=== PATIENT | female | born 1965 | race Caucasian/White ===

== ENCOUNTER 2017-10-20 08:58 | Observation (INO) | payer BC ==
[2017-10-20] MEDS ORDERED: ASPIRIN 81 MG TABLET, CHEWABLE PO ONE (09:31)
[2017-10-20 09:46] LABS: ABSOLUTE BASOPHILS # (AUTO) 0.1 10^3/uL (0.0-0.2); ABSOLUTE EOSINOPHILS # (AUTO) 0.4 10^3/uL (0.0-0.6); ABSOLUTE LYMPHOCYTES (AUTO) 1.5 10^3/uL (0.5-4.7); ABSOLUTE MONOCYTES (AUTO) 0.7 10^3/uL (0.1-1.4); ABSOLUTE NEUT (AUTO) 2.7 10^3/uL (1.7-8.2); BASOPHILS % (AUTO) 1.1 % (0-2); EOSINOPHILS % (AUTO) 7.6 % (0-6); HEMATOCRIT 39.3 % (36.0-47.0); HEMOGLOBIN 13.4 g/dL (12.0-15.5); LYMPHOCYTES % (AUTO) 28.1 % (13-45); MEAN CORPUSCULAR HGB CONC 34.1 g/dL (32.0-36.0); MEAN CORPUSCULAR VOLUME 88 fl (80-97); MONOCYTES % (AUTO) 12.6 % (3-13); PLATELET COUNT 217 10^3/uL (150-450); RED BLOOD COUNT 4.48 10^6/uL (3.72-5.28); RED CELL DISTRIBUTION WIDTH 13.4 % (11.5-14.0); SEGMENTED NEUTROPHILS % (AUTO) 50.6 % (42-78); TOTAL CELLS COUNTED % (AUTO) 100 %; WHITE BLOOD COUNT 5.3 10^3/uL (4.0-10.5)
[2017-10-20 09:52] LABS: ALANINE AMINOTRANSFERASE 31 U/L (9-52); ALKALINE PHOSPHATASE 78 U/L (38-126); ANION GAP 12 (5-19); ASPARTATE AMINO TRANSFERASE 30 U/L (14-36); BILIRUBIN,DIRECT 0.2 mg/dL (0.0-0.4); BILIRUBIN,TOTAL 0.3 mg/dL (0.2-1.3); BLOOD UREA NITROGEN 14 mg/dL (7-20); CALCIUM 9.3 mg/dL (8.4-10.2); CARBON DIOXIDE 29 mmol/L (22-30); CHLORIDE 106 mmol/L (98-107); CREATINE KINASE 67 U/L (30-135); GLUCOSE 102 mg/dL (75-110); POTASSIUM 3.7 mmol/L (3.6-5.0); SODIUM 147.3 mmol/L (137-145); TOTAL PROTEIN 6.4 g/dL (6.3-8.2)
[2017-10-20 10:04] LABS: TROPONIN I < 0.012 ng/mL
--- NOTE | 2017-10-20 10:06 | RADIOLOGY REPORT (SQ) ---
EXAM DESCRIPTION: CHEST SINGLE VIEW COMPLETED DATE/TIME: 10/20/2017 9:45 am REASON FOR STUDY: chest pain COMPARISON: None. EXAM PARAMETERS: NUMBER OF VIEWS: One view. TECHNIQUE: Single frontal radiographic view of the chest acquired. RADIATION DOSE: NA LIMITATIONS: None. FINDINGS: LUNGS AND PLEURA: No opacities, masses or pneumothorax. No pleural effusion. MEDIASTINUM AND HILAR STRUCTURES: No masses. Contour normal. HEART AND VASCULAR STRUCTURES: Heart normal in size. Normal vasculature. BONES: No acute findings. HARDWARE: None in the chest. OTHER: No other significant finding. IMPRESSION: NO ACUTE RADIOGRAPHIC FINDING IN THE CHEST. TECHNICAL DOCUMENTATION: JOB ID: [id number] [employer]- All Rights Reserved Reading location - IP/workstation name: [email or web address]
--- NOTE | 2017-10-20 10:12 | ER Document Report ---
ED General - General Chief Complaint: Chest Pain Stated Complaint: CHEST PAIN Time Seen by Provider: 10/20/17 09:13 Mode of Arrival: Ambulatory Information source: Patient Notes: 52-year-old female history of [place] in 2012 1 stents hypertension hyperlipidemia presents with complaints of chest pressure sensation. Patient notes the sensation initially started last week mild pressure, this morning the pressure returned. No associated shortness of breath noted the pain radiated to her back and to her left elbow. Patient denies any previous similar episodes, notes she had a normal heart cath 2 years ago in [place] Patient is not on any blood thinners that take baby aspirin daily, she is noncompliant with her statin due to body aches TRAVEL OUTSIDE OF THE [place] IN LAST 30 DAYS: No - HPI Onset: This morning Onset/Duration: Sudden Quality of pain: Pressure Severity: Mild Pain Level: 1 Associated symptoms: Chest pain Exacerbated by: Denies Relieved by: Denies Similar symptoms previously: Yes Recently seen / treated by doctor: No - Related Data Allergies/Adverse Reactions: codeine Allergy (Verified 10/20/17 08:59) Past Medical History - Social History Smoking Status: Current Every Day Smoker Cigarette use (# per day): Yes Chew tobacco use (# tins/day): No Smoking Education Provided: No Frequency of alcohol use: Occasional Family History: CAD Patient has suicidal ideation: No Patient has homicidal ideation: No Renal/ Medical History: Denies: Hx Peritoneal Dialysis Past Surgical History: Reports: Hx Cardiac Catheterization, Hx Cardiac Surgery - stent Review of Systems - Review of Systems Notes: REVIEW OF SYSTEMS: CONSTITUTIONAL : Denies fever, chills, or sweats. Denies recent illness. EENT: Denies eye, ear, throat, or mouth pain or symptoms. Denies nasal or sinus congestion or discharge. Denies throat, tongue, or mouth swelling or difficulty swallowing. CARDIOVASCULAR: Admits to chest pain RESPIRATORY: Denies cough, cold, or chest congestion. Denies shortness of breath, difficulty breathing, or wheezing. GASTROINTESTINAL: Denies abdominal pain or distention. Denies nausea, vomiting , or diarrhea. Denies blood in vomitus, stools, or per rectum. Denies black, tarry stools. Denies constipation. GENITOURINARY: Denies difficulty urinating, painful urination, burning, frequency, blood in urine, or discharge. FEMALE GENITOURINARY: Denies vaginal bleeding, heavy or abnormal periods, irregular periods. Denies vaginal discharge or odor. MUSCULOSKELETAL: Denies back or neck pain or stiffness. Denies joint pain or swelling. SKIN: Denies rash, lesions or sores. HEMATOLOGIC : Denies easy bruising or bleeding. LYMPHATIC: Denies swollen, enlarged glands. NEUROLOGICAL: Denies confusion or altered mental status. Denies passing out or loss of consciousness. Denies dizziness or lightheadedness. Denies headache. Denies weakness or paralysis or loss of use of either side. Denies problems with gait or speech. Denies sensory loss, numbness, or tingling. Denies seizures. PSYCHIATRIC: Denies anxiety or stress. Denies depression, suicidal ideation, or homicidal ideation. ALL OTHER SYSTEMS REVIEWED AND NEGATIVE. PHYSICAL EXAMINATION: GENERAL: Well-appearing, well-nourished and in no acute distress. HEAD: Atraumatic, normocephalic. EYES: Pupils equal round and reactive to light, extraocular movements intact, conjunctiva are normal. ENT: Nares patent, oropharynx clear without exudates. Moist mucous membranes. NECK: Normal range of motion, supple without lymphadenopathy LUNGS: Breath sounds clear to auscultation bilaterally and equal. No wheezes rales or rhonchi. HEART: Regular rate and rhythm without murmurs ABDOMEN: Soft, nontender, nondistended abdomen. No guarding, no rebound. No masses appreciated. Female : deferred Musculoskeletal: Normal range of motion, no pitting or edema. No cyanosis. NEUROLOGICAL: Cranial nerves grossly intact. Normal speech, normal gait. Normal sensory, motor exams PSYCH: Normal mood, normal affect. SKIN: Warm, Dry, normal turgor, no rashes or lesions noted. Dictation was performed using [employer] voice recognition software Physical Exam - Vital signs Vitals: BP Pulse Ox 159/82 H 99 10/20/17 09:13 10/20/17 09:13 Course - Re-evaluation Re-evalutation: 10/20/17 10:15 First set of cardiac enzymes EKG no no significant abnormality, there was initial concern that there might be ST elevations in aVR, I did discuss with this with Dr. Haas who notes it looks normal at this time, I agree, overall patient looks well is in no distress has no pain at this time she is noted to be slightly bradycardic but is on metoprolol Patient will be observed in the hospital - Vital Signs Vital signs: Temp Pulse Resp BP Pulse Ox 13 159/82 H 100 10/20/17 09:14 10/20/17 09:13 10/20/17 09:14 - Laboratory Result Diagrams: 10/20/17 09:15 10/20/17 09:15 Laboratory results interpreted by me: 10/20/17 10/20/17 09:15 09:15 Eosinophils % 7.6 H Sodium 147.3 H - Diagnostic Test Radiology reviewed: Image reviewed - 2 view chest x-ray notes no acute abnormality, Reports reviewed - EKG Interpretation by Me EKG shows normal: Sinus rhythm, Backus, Intervals, QRS Complexes When compared to previous EKG there are: Previous EKG unavailable Discharge - Discharge Clinical Impression: Chest pain Qualifiers: Chest pain type: unspecified Qualified Code(s): R07.9 - Chest pain, unspecified Condition: Stable Disposition: ADMITTED OBSERVATION Admitting Provider: Hospitalist Unit Admitted: Telemetry
[2017-10-20] MEDS ORDERED: NITROGLYCERIN 0.4 MG/TAB 25 TAB/BOTTLE ONE (12:06)
[2017-10-20] MEDS ORDERED: DEXTROSE 40% GEL 15 GM TUBE PO PRN ×2 (12:16)
[2017-10-20] MEDS ORDERED: DEXTROSE 50%-WATER 25 GM/50 ML DISP.SYRIN IV PRN ×2 (12:16)
[2017-10-20] MEDS ORDERED: ACETAMINOPHEN 325 MG TABLET PO PRN (12:16)
[2017-10-20] MEDS ORDERED: GLUCAGON,HUMAN RECOMB 1 MG INJ SUBCUT PRN (12:16)
[2017-10-20] MEDS ORDERED: NITROGLYCERIN 2% OINTMENT 1 GM PACKET ONE (12:25)
[2017-10-20] MEDS ORDERED: HYDRALAZINE HCL INJ/PF 20 MG/1 ML SDV IV PRN (12:48)
[2017-10-20] MEDS: ONDANSETRON 4 MG TAB.RAPDIS PO PRN ×2 (12:50→19:08)
--- NOTE | 2017-10-20 12:50 | PDOC H&P ---
History of Present Illness Admission Date/PCP: 10/20/17 10:24 Dr Noreen Morrison in [facility] History of Present Illness: CHRISTAL FELICIANO is a 52 year old female who is visiting the [facility] from [place]. Her past medical history is significant for coronary artery disease status post stent placement. She also has a history of hyperlipidemia and hypertension. Unfortunately she continues to smoke. The patient presented to the emergency room with worsening chest discomfort. She states it started before she left [place] but went away and she decided to come to this area anyway. Yesterday evening she had some chest discomfort that radiated into the jaw left shoulder and left elbow. It did go away but worsened this morning and she presented to the emergency room for further evaluation and treatment. The patient is a rather poor historian and is very vague in describing her symptoms however she does tell me that this chest discomfort is almost identical to the chest pain she had with her MN. She states that there is nothing that makes it better or worse. It is associated with diaphoresis and mild nausea. She does have radiation into the jaw left shoulder and left elbow. She states she has not been totally compliant with her statin medication because it causes muscle aches. Otherwise she takes her other medications as prescribed. She states she does follow with a call out operator in [place] however she cannot recall his name. Before I could get to see the patient this morning she developed an episode of severe chest pain. The nurse called me and I ordered sublingual nitroglycerin. By the time I got to the patient's room her chest pain was relieved. We placed some nitro paste on the patient with total resolution of her chest pain. Past Medical History Cardiac Medical History: Reports: Coronary Artery Disease, Other - MN status post stent placement Pulmonary Medical History: Reports: None Denies: Chronic Obstructive Pulmonary Disease (COPD), Pneumonia, Respiratory Failure EENT Medical History: Reports: None Neurological Medical History: Denies: Hemorrhagic CVA, Ischemic CVA, Migraine, Seizures Endocrine Medical History: Denies: Diabetes Mellitus Type 1, Diabetes Mellitus Type 2 Renal/ Medical History: Denies: Chronic Kidney Disease, End Stage Renal Disease Malignancy Medical History: Reports: None GI Medical History: Denies: Gastroesophageal Reflux Disease Musculoskeltal Medical History: Reports: None Skin Medical History: Reports: None Psychiatric Medical History: Reports: None Past Surgical History Past Surgical History: Reports: Cardiac Catheterization Social History Information Source: Patient Lives with: Alone Smoking Status: Current Every Day Smoker - The patient quit smoking when she had her heart attack. However she continues to elevate with a low nicotine solution. Frequency of Alcohol Use: Rare Hx Recreational Drug Use: No Hx Prescription Drug Abuse: No - Advance Directive Resuscitation Status: Full Code Family History Family History: CAD Parental Family History Reviewed: Yes Children Family History Reviewed: Yes Sibling(s) Family History Reviewed.: Yes Medication/Allergy Home Medications: Aspirin 81 mg PO DAILY 10/20/17 Atorvastatin Calcium 10 mg PO QHS 10/20/17 Hydrochlorothiazide [Hydrochlorothiazide] 12.5 mg PO QAM 10/20/17 Lisinopril [Lisinopril] 20 mg PO DAILY 10/20/17 Metoprolol Tartrate [Metoprolol Tartrate] 25 mg PO BID 10/20/17 Allergies/Adverse Reactions: codeine Allergy (Verified 10/20/17 08:59) Review of Systems Constitutional: PRESENT: fatigue, weight gain. ABSENT: chills, fever(s), weakness Eyes: ABSENT: visual disturbances Ears: ABSENT: hearing changes Cardiovascular: PRESENT: chest pain - The patient has chest pain. It does not worsen or get better with exercise or rest. Radiates into her left shoulder and elbow as well as her jaw. Respiratory: ABSENT: cough, hemoptysis Gastrointestinal: ABSENT: abdominal pain, constipation, diarrhea, hematemesis, hematochezia, nausea, vomiting Genitourinary: ABSENT: dysuria, hematuria Musculoskeletal: ABSENT: joint swelling Integumentary: ABSENT: rash, wounds Neurological: ABSENT: abnormal gait, abnormal speech, confusion, dizziness, focal weakness, syncope Psychiatric: PRESENT: anxiety. ABSENT: depression, homidical ideation, suicidal ideation Endocrine: ABSENT: cold intolerance, heat intolerance, polydipsia, polyuria Hematologic/Lymphatic: ABSENT: easy bleeding, easy bruising Physical Exam Vital Signs: Temp Pulse Resp BP Pulse Ox 97.9 F 47 L 16 140/84 H 100 10/20/17 11:28 10/20/17 11:28 10/20/17 11:28 10/20/17 11:28 10/20/17 11:28 Intake & Output 10/19/17 10/20/17 10/21/17 06:59 06:59 06:59 Weight 91.9 kg General appearance: PRESENT: mild distress, well-developed, well-nourished, other - Initially at the time of my visit she was still having some chest discomfort. This totally was resolved with Nitropaste Head exam: PRESENT: atraumatic, normocephalic Eye exam: PRESENT: conjunctiva pink, EOMI, PERRLA. ABSENT: scleral icterus Ear exam: PRESENT: normal external ear exam Mouth exam: PRESENT: moist, tongue midline Neck exam: ABSENT: carotid bruit, JVD, lymphadenopathy, thyromegaly Respiratory exam: PRESENT: clear to auscultation alessandra. ABSENT: rales, rhonchi, wheezes Cardiovascular exam: PRESENT: RRR. ABSENT: diastolic murmur, rubs, systolic murmur Pulses: PRESENT: normal dorsalis pedis pul Vascular exam: PRESENT: normal capillary refill GI/Abdominal exam: PRESENT: normal bowel sounds, soft. ABSENT: distended, guarding, mass, organolmegaly, rebound, tenderness Rectal exam: PRESENT: deferred Extremities exam: PRESENT: full ROM. ABSENT: calf tenderness, clubbing, pedal edema Musculoskeletal exam: PRESENT: ambulatory Neurological exam: PRESENT: alert, awake, oriented to person, oriented to place , oriented to time, oriented to situation, CN II-XII grossly intact. ABSENT: motor sensory deficit Psychiatric exam: PRESENT: anxious Skin exam: PRESENT: dry, intact, warm. ABSENT: cyanosis, rash Results Impressions: Chest X-Ray 10/20/17 09:31 IMPRESSION: NO ACUTE RADIOGRAPHIC FINDING IN THE CHEST. Assessment & Plan - Diagnosis (1) Chest pain Is this a current diagnosis for this admission?: Yes Plan: Concerns for acute coronary syndrome. The patient states that her chest discomfort is identical to her previous myocardial infarction. Her chest discomfort was totally resolved with nitro paste. We will place her in observation in the hospital. I will trend her serial troponins. If they remain negative she will have a stress test performed in the morning. Also will order a 2D echocardiogram. I will consult cardiology just to be on the safe side as her symptoms are quite concerning. For now I will place the patient on full dose Lovenox as well as a full dose aspirin. (2) Coronary artery disease Is this a current diagnosis for this admission?: Yes Plan: Plan as above. She will continue a full dose aspirin. She will continue her metoprolol and BAILEY inhibitor. I will start her back on her statin medication for now. (3) Hyperlipidemia Is this a current diagnosis for this admission?: Yes Plan: For now she will continue her statin medication. I will add a lipid panel onto tomorrow's labs. (4) Hypertension Is this a current diagnosis for this admission?: Yes Plan: She will have IV hydralazine available as needed. (5) Obesity Is this a current diagnosis for this admission?: Yes Plan: She states she has gained a significant amount of weight recently. She states she has been under increased stress (6) Hypernatremia Is this a current diagnosis for this admission?: Yes Plan: This is quite mild. She will have a chemistry panel drawn in the morning. (7) Nicotine dependence Is this a current diagnosis for this admission?: Yes Plan: The patient Vapes a low nicotine solution. (8) Anxiety Is this a current diagnosis for this admission?: Yes Plan: The patient admits to being under a tremendous amount of stress. Her daughter recently got and her mother has declined and she has had to place her in an assisted living facility. Her father last year of colon cancer. (9) Full code status Is this a current diagnosis for this admission?: Yes - Time Time Spent: 50 to 70 Minutes - Inpatient Certification Medical Necessity: Other - The patient will be placed in observation in the hospital. We will rule her out for acute coronary syndrome. If her workup is negative she will be discharged tomorrow. I expect her hospitalization will last less than 2 midnights at this point. Certainly if she rules and her status can be changed.
[2017-10-20] MEDS ORDERED: LISINOPRIL 10 MG TABLET PO ONE (13:30)
[2017-10-20] MEDS ORDERED: HYDROCHLOROTHIAZIDE 12.5 MG CAPSULE PO ONE (13:30)
[2017-10-20] MEDS ORDERED: ENOXAPARIN SODIUM INJ 100 MG/1 ML DISP.SYRIN SUBCUT ONE (13:30)
[2017-10-20 13:33] LABS: APPEARANCE,URINE CLEAR; BILIRUBIN,URINE NEGATIVE (NEGATIVE); COLOR,URINE STRAW; GLUCOSE, URINE NEGATIVE (NEGATIVE); KETONES,URINE NEGATIVE (NEGATIVE); LEUKOCYTE ESTERASE,URINE NEGATIVE (NEGATIVE); NITRITE,URINE NEGATIVE (NEGATIVE); PROTEIN,URINE NEGATIVE (NEGATIVE); URINE SPECIFIC GRAVITY 1.008; UROBILINOGEN,URINE NEGATIVE mg/dL (<2.0)
[2017-10-20] MEDS ORDERED: ASPIRIN 81 MG TABLET, CHEWABLE PO SCH ×2 (14:00)
[2017-10-20] MEDS: NITROGLYCERIN 2% OINTMENT 1 GM PACKET TP SCH ×2 (14:27→21:55)
[2017-10-20 16:19] LABS: CREATINE KINASE MB 0.63 ng/mL (<4.55); TROPONIN I 0.048 ng/mL
--- NOTE | 2017-10-20 17:56 | XCELERA REPORT ---
[address] [address] Transthoracic Echocardiogram Report Name: CHRISTAL FELICIANO Age: 52 yrs Gender: Female : 1965 Patient Status: Inpatient Patient Location: [address] [place] [address] Study Date: 10/20/2017 03:20 PM Procedure: A complete two-dimensional transthoracic echocardiogram was performed (2D, M-mode, spectral and color flow Doppler). The study was technically difficult with many images being suboptimal in quality. Reason For Study: chest pain, hx TN with stent Ordering Physician: CHRISTINA WHALEY Performed By: Carie Nick Interpretation Summary The left ventricular ejection fraction is preserved. Consider additional methods to assess LVEF such as MUGA scan, CTA heart, cardiac MRI, ALEXEY, etc. if clinically indicated. The left ventricle is grossly normal size. LV diastolic function could not be adequately assessed. Regional wall motion abnormalities cannot be excluded due to limited visualization. The right ventricular systolic function is normal. The right atrium is normal in size The left atrial size is normal. There is a trace amount of mitral regurgitation There is no mitral valve stenosis. No aortic regurgitation is present. There is no aortic valve stenosis There is no tricuspid stenosis. No tricuspid regurgitation. The pulmonic valve is not well visualized. The aortic root is not well visualized but is probably normal size. The inferior vena cava appeared small and collapsed with respiration (RAP 0-5 mmHg) There is no pericardial effusion. MMode/2D Measurements & Calculations RVDd: 2.9 cm LVIDd: 5.5 cm FS: 46.0 % Ao root diam: 3.0 cm IVSd: 1.1 cm LVIDs: 3.0 cm EDV(Teich): 145.9 ml Ao root area: 7.1 cm2 LVPWd: 0.87 cm ESV(Teich): 33.8 ml EF(Teich): 76.8 % Doppler Measurements & Calculations MV E max jared: MV dec slope: Ao V2 max: LV V1 max P.4 cm/sec 246.6 cm/sec2 88.4 cm/sec 1.3 mmHg MV A max jared: MV dec time: 0.28 secAo max PG: LV V1 max: 63.5 cm/sec 3.1 mmHg 58.0 cm/sec MV E/A: 1.1 PA V2 max: TR max jared: 51.8 cm/sec 194.3 cm/sec PA max P.1 mmHgTR max P.1 mmHg Left Ventricle The left ventricle is grossly normal size. The left ventricular ejection fraction is preserved. Consider additional methods to assess LVEF such as MUGA scan, CTA heart, cardiac MRI, ALEXEY, etc. if clinically indicated. LV diastolic function could not be adequately assessed. Regional wall motion abnormalities cannot be excluded due to limited visualization. Right Ventricle The right ventricle is grossly normal size. There is normal right ventricular wall thickness. The right ventricular systolic function is normal. Atria The right atrium is normal in size. The left atrial size is normal. Interarterial septum not well visualized and not well dopplered. Cannot comment on ASD/PFO presence. Mitral Valve The mitral valve is grossly normal. There is no mitral valve stenosis. There is a trace amount of mitral regurgitation. Aortic Valve The aortic valve is grossly normal. There is no aortic valve stenosis. No aortic regurgitation is present. Tricuspid Valve The tricuspid valve is not well visualized, but is grossly normal. There is no tricuspid stenosis. No tricuspid regurgitation. Pulmonic Valve The pulmonic valve is not well visualized. Great Vessels The aortic root is not well visualized but is probably normal size. The inferior vena cava appeared small and collapsed with respiration (RAP 0-5 mmHg). Effusions There is no pericardial effusion. : CHRISTINA WHALEY > Kemal Haas
[2017-10-20] MEDS ORDERED: METOPROLOL TARTRATE 25 MG TABLET PO SCH (18:00)
--- NOTE | 2017-10-20 18:53 | PDOC TRANSFER SUMMARY ---
General Admission Date/PCP: 10/20/17 10:24 In [place] Admission Date: 10/20/17 Transfer Date: 10/20/17 Accepting Facility: [facility] Resuscitation Status: Full Code - Transfer Diagnosis (1) Chest pain Is this a current diagnosis for this admission?: Yes Diagnosis Summary: The patient has had a rise in her troponins. In light of her history it is felt that transfer to a tertiary center for consideration of cardiac catheterization is necessary. Dr. Harris from the cardiology department at [facility] is graciously agreed to accept this patient in transfer. She will be transferred as soon as a bed is found. (2) Coronary artery disease Is this a current diagnosis for this admission?: Yes Diagnosis Summary: She is on metoprolol, BAILEY inhibitor and statin medication which she takes intermittently as an outpatient. She also is on an aspirin. She is status post NM in the past with a stent in place. I do not have information further than that (3) Hyperlipidemia Is this a current diagnosis for this admission?: Yes Diagnosis Summary: She is not compliant with always taking her statin medication due to muscle pain. (4) Hypertension Is this a current diagnosis for this admission?: Yes Diagnosis Summary: Stable (5) Obesity Is this a current diagnosis for this admission?: Yes Diagnosis Summary: She states she has gained quite a bit of weight recently. (6) Hypernatremia Is this a current diagnosis for this admission?: Yes (7) Nicotine dependence Is this a current diagnosis for this admission?: Yes Diagnosis Summary: The patient vapes a low nicotine solution (8) Anxiety Is this a current diagnosis for this admission?: Yes Diagnosis Summary: She has been under increased stress recently. (9) Full code status Is this a current diagnosis for this admission?: Yes - Transfer Medications Home Medications: Aspirin 81 mg PO DAILY 10/20/17 Atorvastatin Calcium 10 mg PO QHS 10/20/17 Hydrochlorothiazide [Hydrochlorothiazide] 12.5 mg PO QAM 10/20/17 Lisinopril [Lisinopril] 20 mg PO DAILY 10/20/17 Metoprolol Tartrate [Metoprolol Tartrate] 25 mg PO BID 10/20/17 Transfer Medications: Current Medications Acetaminophen (Tylenol 325 Mg Tablet) 650 mg PO Q4HP PRN PRN Reason: MILD PAIN Stop: 11/19/17 12:15 Aspirin (Aspirin 81 Mg Chewable Tablet) 325 mg PO DAILY@1400 [facility] Stop: 11/19/17 13:59 Last Admin: 10/20/17 13:49 Dose: Not Given Atorvastatin Calcium (Lipitor 10 Mg Tablet) 10 mg PO QHS [facility] Stop: 11/19/17 21:59 Dextrose (Dextrose Inj 50% Syringe (25 Gm/50 Ml)) 12.5 gm IV PRN PRN; Protocol PRN Reason: FOR BG 50-69 IN ALERT PATIENT Stop: 11/19/17 12:15 Dextrose (Dextrose Inj 50% Syringe (25 Gm/50 Ml)) 25 gm IV PRN PRN; Protocol PRN Reason: See Label Comments Stop: 11/19/17 12:15 Enoxaparin Sodium (Lovenox Inj 100 Mg/1 Ml Disp.Syrin) 90 mg SUBCUT Q12 [facility] Stop: 11/19/17 21:59 Glucagon (Glucagen Inj 1 Mg Vial) 1 mg SUBCUT PRN PRN; Protocol PRN Reason: Evaluate for BG < 70 Stop: 11/19/17 12:15 Glucose (Glutose 40% Gel 15 Gm Tube) 15 gm PO PRN PRN; Protocol PRN Reason: For BG 50-69 in Alert Patient Stop: 11/19/17 12:15 Glucose (Glutose 40% Gel 15 Gm Tube) 30 gm PO PRN PRN; Protocol PRN Reason: FOR BG < 50 IN ALERT PATIENT Stop: 11/19/17 12:15 Hydralazine HCl (Apresoline Inj/Pf 20 Mg/1 Ml Sdv) 10 mg IV Q6HP PRN PRN Reason: GIVE FOR SBP > [] / DBP > [] Stop: 11/19/17 12:47 Hydrochlorothiazide (Hydrodiuril 12.5 Mg Capsule) 12.5 mg PO DAILY [facility] Stop: 11/20/17 09:59 Lansoprazole (Prevacid 30 Mg Odt Tablet) 30 mg PO Q6AM [facility] Stop: 11/20/17 05:59 Lisinopril (Prinivil 10 Mg Tablet) 20 mg PO DAILY [facility] Stop: 11/20/17 09:59 Metoprolol Tartrate (Lopressor 25 Mg Tablet) 25 mg PO Q12A [facility] Stop: 11/19/17 17:59 Last Admin: 10/20/17 17:26 Dose: 25 mg Nitroglycerin (Nitrol 2% Ointment 1gm Packet) 1 gm TP Q6A [facility] Stop: 11/19/17 14:59 Last Admin: 10/20/17 14:27 Dose: Not Given Ondansetron HCl (Zofran Odt 4 Mg Tablet) 4 mg PO Q4HP PRN PRN Reason: FOR NAUSEA/VOMITING Stop: 11/19/17 12:15 Last Admin: 10/20/17 12:50 Dose: 4 mg - Allergies Allergies/Adverse Reactions: codeine Allergy (Verified 10/20/17 08:59) - Diet/Activity Discharge Diet: Cardiac Hospital Course Hospital Course: ANNIA FELICIANO is a 52 year old female who is visiting the [facility] from [place]. Her past medical history is significant for coronary artery disease status post stent placement. She also has a history of hyperlipidemia and hypertension. Unfortunately she continues to smoke. The patient presented to the emergency room with worsening chest discomfort. She states it started before she left [place] but went away and she decided to come to this area anyway. Yesterday evening she had some chest discomfort that radiated into the jaw left shoulder and left elbow. It did go away but worsened this morning and she presented to the emergency room for further evaluation and treatment. The patient is a rather poor historian and is very vague in describing her symptoms however she does tell me that this chest discomfort is almost identical to the chest pain she had with her NM. She states that there is nothing that makes it better or worse. It is associated with diaphoresis and mild nausea. She does have radiation into the jaw left shoulder and left elbow. She states she has not been totally compliant with her statin medication because it causes muscle aches. Otherwise she takes her other medications as prescribed. She states she does follow with a plate driller in [place] however she cannot recall his name. Before I could get to see the patient this morning she developed an episode of severe chest pain. The nurse called me and I ordered sublingual nitroglycerin. By the time I got to the patient's room her chest pain was relieved. We placed some nitro paste on the patient with total resolution of her chest pain. Her initial troponin was negative. However her second troponin nicolasa slightly. She had a 2D echocardiogram performed which could not visualize the left ventricle very well due to the patient having breast implants. The recommendation from cardiology was to transfer to a tertiary center for further evaluation as she likely will need cardiac cath. I spoke to Dr. Harris at [facility] who is graciously agreed to accept this patient in transfer. She will be transferred to their facility as soon as a bed is found. Physical Exam Vital Signs: Temp Pulse Resp BP Pulse Ox 97.9 F 54 L 16 140/84 H 100 10/20/17 11:28 10/20/17 14:00 10/20/17 11:28 10/20/17 11:28 10/20/17 11:28 Intake & Output 10/19/17 10/20/17 10/21/17 06:59 06:59 06:59 Weight 91.9 kg General appearance: PRESENT: no acute distress, well-developed, well-nourished Head exam: PRESENT: atraumatic, normocephalic Ear exam: PRESENT: normal external ear exam Mouth exam: PRESENT: moist, tongue midline Neck exam: ABSENT: carotid bruit, JVD, lymphadenopathy, thyromegaly Respiratory exam: PRESENT: clear to auscultation alessandra. ABSENT: rales, rhonchi, wheezes Cardiovascular exam: PRESENT: RRR. ABSENT: diastolic murmur, rubs, systolic murmur Pulses: PRESENT: normal dorsalis pedis pul GI/Abdominal exam: PRESENT: normal bowel sounds, soft. ABSENT: distended, guarding, mass, organolmegaly, rebound, tenderness Rectal exam: PRESENT: deferred Extremities exam: PRESENT: full ROM. ABSENT: calf tenderness, clubbing, pedal edema Neurological exam: PRESENT: alert, awake, oriented to person, oriented to place , oriented to time, oriented to situation, CN II-XII grossly intact. ABSENT: motor sensory deficit Psychiatric exam: PRESENT: anxious Skin exam: PRESENT: dry, intact, warm. ABSENT: cyanosis, rash Results Laboratory Results: 10/20/17 12:45 Urine Color STRAW Urine Appearance CLEAR Urine pH 6.0 Ur Specific [place] 1.008 Urine Protein NEGATIVE Urine Glucose (UA) NEGATIVE Urine Ketones NEGATIVE Urine Blood NEGATIVE Urine Nitrite NEGATIVE Ur Leukocyte Esterase NEGATIVE Urine WBC (Auto) 0 10/20/17 10/20/17 15:38 15:38 Creatine Kinase 61 CK-MB (CK-2) 0.63 Troponin I 0.048 Impressions: Chest X-Ray 10/20/17 09:31 IMPRESSION: NO ACUTE RADIOGRAPHIC FINDING IN THE CHEST. Plan Time Spent: Greater than 30 Minutes
[2017-10-20] MEDS ORDERED: NITROGLYCERIN/D5W 50 MG/250 ML RTUINJ IV PRN (19:22)
--- NOTE | 2017-10-20 19:37 | PDOC CONSULTATION ---
Consultation Consult Date: 10/20/17 Attending physician:: CHRISTINA WHALEY Consult reason:: Chest pain History of Present Illness Admission Date/PCP: 10/20/17 10:24 Patient complains of: Chest pain History of Present Illness: CHRISTAL FELICIANO is a 52 year old female who is visiting the [facility] from [place]. Her past medical history is significant for coronary artery disease status post stent placement. She also has a history of hyperlipidemia and hypertension. Unfortunately she continues to smoke. The patient presented to the emergency room with worsening chest discomfort. She states it started before she left [place] but went away and she decided to come to this area anyway. Yesterday evening she had some chest discomfort that radiated into the jaw left shoulder and left elbow. It did go away but worsened this morning and she presented to the emergency room for further evaluation and treatment. The patient is a rather poor historian and is very vague in describing her symptoms however she does tell me that this chest discomfort is almost identical to the chest pain she had with her KS. She states that there is nothing that makes it better or worse. It is associated with diaphoresis and mild nausea. She does have radiation into the jaw left shoulder and left elbow. She states she has not been totally compliant with her statin medication because it causes muscle aches. Otherwise she takes her other medications as prescribed. She states she does follow with a production honing machine operator in [place] however she cannot recall his name. Before I could get to see the patient this morning she developed an episode of severe chest pain. The nurse called me and I ordered sublingual nitroglycerin. By the time I got to the patient's room her chest pain was relieved. We placed some nitro paste on the patient with total resolution of her chest pain. This history obtained by the ER physician and hospitalist was reviewed. I saw the patient at around 1:30 PM. At that time she was noted to be chest pain- free. I reviewed her EKGs and blood test results. Told her that if her cardiac enzymes comes back suggestive or if she has recurrent chest pain then we should transfer her to a tertiary care for heart catheterization. Patient was agreeable with this approach. A 2D echo was ordered. This was subsequently performed which was technically difficult but overall LVEF was noted to be WNL. Past Medical History Cardiac Medical History: Reports: Coronary Artery Disease, Other - [place] status post stent placement Pulmonary Medical History: Reports: None Denies: Chronic Obstructive Pulmonary Disease (COPD), Pneumonia, Respiratory Failure EENT Medical History: Reports: None Neurological Medical History: Denies: Hemorrhagic CVA, Ischemic CVA, Migraine, Seizures Endocrine Medical History: Denies: Diabetes Mellitus Type 1, Diabetes Mellitus Type 2 Renal/ Medical History: Denies: Chronic Kidney Disease, End Stage Renal Disease Malignancy Medical History: Reports: None GI Medical History: Denies: Gastroesophageal Reflux Disease Musculoskeltal Medical History: Reports: None Skin Medical History: Reports: None Psychiatric Medical History: Reports: None Past Surgical History Past Surgical History: Reports: Cardiac Catheterization, Coronary Stent Social History Information Source: Patient Lives with: Alone Smoking Status: Current Every Day Smoker - The patient quit smoking when she had her heart attack. However she continues to elevate with a low nicotine solution. Frequency of Alcohol Use: Rare Hx Recreational Drug Use: No Hx Prescription Drug Abuse: No - Advance Directive Resuscitation Status: Full Code Family History Family History: CAD Parental Family History Reviewed: Yes Children Family History Reviewed: Yes Sibling(s) Family History Reviewed.: Yes Medication/Allergy Home Medications: Aspirin 81 mg PO DAILY 10/20/17 Atorvastatin Calcium 10 mg PO QHS 10/20/17 Hydrochlorothiazide [Hydrochlorothiazide] 12.5 mg PO QAM 10/20/17 Lisinopril [Lisinopril] 20 mg PO DAILY 10/20/17 Metoprolol Tartrate [Metoprolol Tartrate] 25 mg PO BID 10/20/17 Allergies/Adverse Reactions: codeine Allergy (Verified 10/20/17 08:59) Review of Systems Review of Systems: Please see history of present illness and past medical history as wall. Constitutional: No fever or chills reported. Head : No recent chronic headaches, recent head injury. Eyes: No recent eye pain, diplopia, redness, discharge, acute visual changes. Ears: No recent chronic ear pain, acute hearing loss, ear discharge. Oral cavity: No recent ulcerations, bleeding, oral cavity discomfort. Neck: No recent acute neck pain reported. Hematologic: No recent easy bruising or bleeding. Lymphatic: No recent lymph node enlargement reported. Cardiovascular system review: See history of present illness. Respiratory system review: No hemoptysis or blood clots in the lungs reported. Mild Shortness of breath on exertion Gastrointestinal system review: Negative for any recent acute hematemesis, melena. Genitourinary system review: No recent acute or chronic hematuria, flank pain, UTI etc. reported. Skin system review: Negative for any recent abnormal bruising, no rash, no pruritus reported. Neurologic: No prior history of strokes, mini strokes, seizure disorder. Psychologic: No history of major psychosis or major depression reported. Musculoskeletal: Minor aches and pains reported. No acute joint swelling reported. Endocrine: No recent polyuria, polydipsia, recent heat or cold intolerance. Physical Exam Vital Signs: Temp Pulse Resp BP Pulse Ox 97.9 F 54 L 16 140/84 H 100 10/20/17 11:28 10/20/17 14:00 10/20/17 11:28 10/20/17 11:28 10/20/17 11:28 Intake & Output 10/19/17 10/20/17 10/21/17 06:59 06:59 06:59 Weight 91.9 kg Exam: GENERAL: well-nourished and in no acute distress. Alert and oriented x3 HEAD: Atraumatic, normocephalic. EYES: Pupils equal round and reactive to light, extraocular movements intact, sclera anicteric, conjunctiva are normal. ENT: TMs normal, nares patent, oropharynx clear without exudates. Moist mucous membranes. No oral ulcerations or bleeding gums noted NECK: supple without lymphadenopathy. Trachea is central. No cervical or axillary lymphadenopathy noted. Carotids are 2+, JVD WNL LUNGS: Respiration seems nonlabored, no significant accessory muscle action noted. Breath sounds clear to auscultation bilaterally and equal noted. No wheezes rales or rhonchi noted. No significant dullness noted on percussion. CHEST: Palpation of the chest wall shows no significant chest wall tenderness. 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 ABDOMEN: Soft, no significant tenderness appreciated, normoactive bowel sounds. No guarding, no rebound. No rigidity noted . No masses appreciated. EXTREMITIES: Pedal pulses are 1-2+, no calf tenderness noted. No clubbing or cyanosis. negative pedal edema noted NEUROLOGICAL: Focused neurological exam showed no significant neurologic deficit. Normal speech, no focal weakness appreciated. PSYCH: Normal mood, normal affect. Judgment and insight within normal limits. SKIN: No significant ecchymosis, skin is noted to be warm. MUSCULOSKELETAL EXAM: No significant acute joint swelling noted. Results Laboratory Results: 10/20/17 12:45 Urine Color STRAW Urine Appearance CLEAR Urine pH 6.0 Ur Specific [place] 1.008 Urine Protein NEGATIVE Urine Glucose (UA) NEGATIVE Urine Ketones NEGATIVE Urine Blood NEGATIVE Urine Nitrite NEGATIVE Ur Leukocyte Esterase NEGATIVE Urine WBC (Auto) 0 10/20/17 10/20/17 15:38 15:38 Creatine Kinase 61 CK-MB (CK-2) 0.63 Troponin I 0.048 EKG Comments: Sinus rhythm, baseline artifact, no acute ST-T wave changes. A subsequent EKG while obtained with chest pain showed sinus rhythm with minor nonspecific ST segment changes lateral chest leads. Impressions: Chest X-Ray 10/20/17 09:31 IMPRESSION: NO ACUTE RADIOGRAPHIC FINDING IN THE CHEST. Assessment & Plan - Diagnosis (1) Chest pain Qualifiers: Chest pain type: unspecified Qualified Code(s): R07.9 - Chest pain, unspecified Is this a current diagnosis for this admission?: Yes (2) Coronary artery disease Qualifiers: Coronary Disease-Associated Artery/Lesion type: [place] artery [place] vs. transplanted heart: [place] heart Associated angina: with unspecified angina Qualified Code(s): I25.119 - Atherosclerotic heart disease of [place] coronary artery with unspecified angina pectoris Is this a current diagnosis for this admission?: Yes (3) Hyperlipidemia Qualifiers: Hyperlipidemia type: unspecified Qualified Code(s): E78.5 - Hyperlipidemia , unspecified Is this a current diagnosis for this admission?: Yes (4) Hypernatremia Is this a current diagnosis for this admission?: Yes (5) Hypertension Qualifiers: Hypertension type: essential hypertension Qualified Code(s): I10 - Essential (primary) hypertension Is this a current diagnosis for this admission?: Yes (6) Nicotine dependence Qualifiers: Nicotine product type: cigarettes Is this a current diagnosis for this admission?: Yes (7) Obesity Qualifiers: Obesity type: unspecified obesity type Obesity classification: unspecified obesity classification Is this a current diagnosis for this admission?: Yes (8) Acute coronary syndrome Is this a current diagnosis for this admission?: Yes - Notes Notes: Chest pain: She has known CAD with prior stent. There is high probability that the chest pain is from acute coronary syndrome. At this point treat with Lovenox aspirin, Plavix, beta-iliana, BAILEY inhibitor/ARB, nitroglycerin etc. Should patient has recurrent chest pain suggestive enzyme consider transfer to tertiary care for heart catheterization. Hyperlipidemia: Recommend high potency statin therapy. Hypertension: Blood pressure goal should be 135/85 or less in this patient. Tobacco abuse: Patient has been advised to quit smoking. Obesity: Patient will benefit from long-term weight loss. Patient to report any recurrence of chest pain. - Time Time Spent: 30 to 50 Minutes - CODE STATUS was discussed, patient remains full code. Surrogate decision-maker patient's daughter. Multiple medical problems were addressed. More than 50% of the time spent coordinating care, discussing management plans with involved caregivers. Management plans discussed with involved personnels. Medical decision making was of moderate to high complexity , patient's has multiple comorbidities. Medications reviewed and adjusted accordingly: Yes
[2017-10-20 19:58] VITALS: BP 119/68
[2017-10-20] MEDS ORDERED: CLOPIDOGREL BISULFATE 300 MG TABLET PO ONE (21:00)
--- NOTE | 2017-10-20 21:51 | EKG REPORT ---
SEVERITY:- BORDERLINE ECG - SINUS BRADYCARDIA LOW VOLTAGE THROUGHOUT BORDERLINE T ABNORMALITIES, DIFFUSE LEADS : Confirmed by: Rowan Kraft MD 20-Oct-2017 21:51:25
--- NOTE | 2017-10-20 21:52 | EKG REPORT ---
SEVERITY:- NORMAL ECG - SINUS RHYTHM : Confirmed by: Rowan Kraft MD 20-Oct-2017 21:51:31
[2017-10-20] MEDS ORDERED: ATORVASTATIN CALCIUM 10 MG TABLET PO SCH (22:00)
[2017-10-20] MEDS ORDERED: ENOXAPARIN SODIUM INJ 100 MG/1 ML DISP.SYRIN SUBCUT SCH (22:00)
[2017-10-20 22:11] LABS: CREATINE KINASE MB 0.57 ng/mL (<4.55); TROPONIN I 0.033 ng/mL
[2017-10-21] MEDS ORDERED: LANSOPRAZOLE 30 MG TAB.RAP.DR PO SCH (06:00)
[2017-10-21] MEDS ORDERED: (PENDING PHARMACY ID) (Hydrochlorothiazide [Hydrochlorothiazide] 12.5 MG) PO SCH (08:00)
[2017-10-21] MEDS ORDERED: (PENDING PHARMACY ID) (Lisinopril [Lisinopril] 20 MG) PO SCH (10:00)
[2017-10-21] MEDS ORDERED: LISINOPRIL 10 MG TABLET PO SCH (10:00)
[2017-10-21] MEDS ORDERED: HYDROCHLOROTHIAZIDE 12.5 MG CAPSULE PO SCH (10:00)
== END 2017-10-20 23:13 | disposition short-term general hospital (02) ==
LOC: ER 08:58 → EH 10:24 → 4S 12:01 → ICU 20:01
PROVIDERS: ADMIT Internal Medicine; ATTEND Internal Medicine
DX: R07.89 Other chest pain (principal); R79.89 Other specified abnormal findings of blood chemistry; I25.119 Atherosclerotic heart disease of native coronary artery with unspecified angina pectoris; I25.2 Old myocardial infarction; E78.5 Hyperlipidemia, unspecified; I10 Essential (primary) hypertension; E66.9 Obesity, unspecified; E87.0 Hyperosmolality and hypernatremia; F17.290 Nicotine dependence, other tobacco product, uncomplicated; F41.9 Anxiety disorder, unspecified; Z68.32 Body mass index [BMI] 32.0-32.9, adult; Z95.5 Presence of coronary angioplasty implant and graft; Z79.82 Long term (current) use of aspirin; Z73.3 Stress, not elsewhere classified; Z79.899 Other long term (current) drug therapy; Z91.14 Patient's other noncompliance with medication regimen; Z82.49 Family history of ischemic heart disease and other diseases of the circulatory system
CPT/HCPCS: 93005 ×2; 99285; 36415; 82553; 82550; 85025; 80053; 81001; 84484; 83880; 93306; 71045; 93010; G0378; J3490; S0119; J1650